=== PATIENT | female | born 1980 | race Caucasian/White ===

== ENCOUNTER 2023-12-17 04:36 | Day surgery (SDC) | payer OTHER ==
[2023-12-15 10:37] VITALS: BMI 23.8
[2023-12-17 11:28] VITALS: TEMP 98.2
[2023-12-17 11:58] VITALS: BP 94/55; PULSE 64; RESP 13
== END 2023-12-17 11:58 | disposition home or self-care (01) ==
LOC: JASU-ENDO 04:36
PROVIDERS: ATTEND Internal Medicine Gastroenterology
PROC: 0DJD8ZZ Inspection of Lower Intestinal Tract, Via Natural or Artificial Opening Endoscopic (ICD-10-PCS; principal; 2023-12-17 10:50)
DX: R10.9 Unspecified abdominal pain (principal)
CPT/HCPCS: 81025